=== PATIENT | male | born 1965 | race Caucasian/White ===

== ENCOUNTER 2020-08-20 12:09 | Emergency (ER) | payer OTHER ==
[2020-08-20] MEDS ORDERED: AUGMENTIN 875-1 EACH PO (16:34)
[2020-08-20] MEDS ORDERED: MECLIZINE HCL25 MG PO (16:34)
[2020-08-20] MEDS ORDERED: CARAFATE1 GM PO (16:34)
== END 2020-08-20 16:42 | disposition home or self-care (01) ==
LOC: ER1 12:09
DX: J32.9 Chronic sinusitis, unspecified (principal); R07.2 Precordial pain; R42 Dizziness and giddiness; K21.9 Gastro-esophageal reflux disease without esophagitis; I10 Essential (primary) hypertension; Z88.2 Allergy status to sulfonamides; Z87.442 Personal history of urinary calculi
CPT/HCPCS: 70450; 71046; 99284

== ENCOUNTER → 2020-12-18 | Outpatient (CLI) | payer OTHER ==
[~2020-12-18] MED LIST: AUGMENTIN 875-1 EACH PO; CARAFATE1 GM PO; MECLIZINE HCL25 MG PO
== END ==
LOC: EXRD 13:03
DX: M54.5 Low back pain (principal); M51.36 Other intervertebral disc degeneration, lumbar region; M48.061 Spinal stenosis, lumbar region without neurogenic claudication
CPT/HCPCS: 72110

== ENCOUNTER → 2021-07-09 | Outpatient (CLI) | payer OTHER ==
[~2021-07-09] MED LIST changes: +COMFORT PAC-CYC10 MG MC
== END ==
LOC: KOH-I 08:11
DX: K76.89 Other specified diseases of liver (principal); R10.33 Periumbilical pain; N20.0 Calculus of kidney
CPT/HCPCS: 74176

== ENCOUNTER 2021-07-21 18:42 | Emergency (ER) | payer OTHER ==
[~2021-07-21 18:42] MED LIST changes: -COMFORT PAC-CYC10 MG MC
[2021-07-21] MEDS ORDERED: COMFORT PAC-CYC10 MG MC (21:45)
== END 2021-07-21 22:10 | disposition home or self-care (01) ==
LOC: ER1 18:42
DX: M54.41 Lumbago with sciatica, right side (principal); E11.9 Type 2 diabetes mellitus without complications; I10 Essential (primary) hypertension; Z88.2 Allergy status to sulfonamides
CPT/HCPCS: 72131; 96372; 99283; J1100; J1885

== ENCOUNTER → 2021-08-14 | Outpatient (CLI) | payer OTHER ==
[~2021-08-14] MED LIST changes: +COMFORT PAC-CYC10 MG MC
== END ==
LOC: EXRD 11:01
DX: M79.645 Pain in left finger(s) (principal)
CPT/HCPCS: 73130

== ENCOUNTER → 2021-09-12 | Outpatient (CLI) | payer OTHER | LOC: KOH-I 08:30 | DX: M51.16 Intervertebral disc disorders with radiculopathy, lumbar region (principal); M48.061 Spinal stenosis, lumbar region without neurogenic claudication | CPT/HCPCS: 72148 ==

== ENCOUNTER → 2021-12-24 | Outpatient (CLI) | payer OTHER | LOC: US 10:15 | DX: N28.9 Disorder of kidney and ureter, unspecified (principal); N28.1 Cyst of kidney, acquired ==